=== PATIENT | male | born 1980 | race Caucasian/White ===

== ENCOUNTER 2023-09-02 16:22 | Emergency (ER) | payer MEDICAID ==
[~2023-09-02] VITALS: Ht 172.7 cm; Wt 79.5 kg
[2023-09-02 16:29] VITALS: BP 126/81; PULSE 86; RESP 16; TEMP 98.5; O2SAT 100
[2023-09-02] MEDS ORDERED: ONDANSETRON 4MG ODT PO ONE (16:45)
== END 2023-09-02 16:50 | disposition left against medical advice (07) ==
LOC: ER 16:22
DX: R11.2 Nausea with vomiting, unspecified (principal); R19.7 Diarrhea, unspecified; J45.909 Unspecified asthma, uncomplicated; Z88.8 Allergy status to other drugs, medicaments and biological substances
CPT/HCPCS: 93005; 99283